=== PATIENT | female | born 1980 | race Hispanic/Latino ===

== ENCOUNTER 2023-04-07 18:25 | Emergency (ER) | payer OTHER, SELFPAY ==
[2023-04-07] MEDS ORDERED: Dexamethasone 10 MG/ML VIAL ONE (20:01)
[2023-04-07] MEDS ORDERED: diphenhydrAMINE 25 MG CAP ONE (20:01)
== END 2023-04-07 20:10 | disposition home or self-care (01) ==
LOC: CSHERS 18:25
DX: L50.9 Urticaria, unspecified (principal); E78.00 Pure hypercholesterolemia, unspecified
CPT/HCPCS: 99282; J1100